=== PATIENT | male | born 1980 | race African-American/Black ===

== ENCOUNTER 2016-09-23 12:19 | Emergency (ER) | payer OTHER ==
[~2016-09-23] VITALS: Ht 177.8 cm; Wt 72.7 kg
[~2016-09-23 12:19] MED LIST: AMOXICILLIN 8751 TAB PO; CELEXA 20MG20 MG/TA1 PO; CEPHALEXIN500 M1 PO; HYDROXYZINE10 M1 PO; LEXAPRO20 MG PO; LORTAB 5/500 501 TAB PO; NO HOME MEDICATIONS; NORCO 325 MG-51 TAB PO; PEN-VEE K500 MG PO; PENICILLIN V500 MG PO; PERCOCET 325 MG1 TA2 PO; PHENERGAN 25 TA25 MG PO; PHENERGAN25 MG RC; SEROQUEL 200MG200 MG PO; ULTRAM 50MG TAB50 MG PO; ULTRAM50 MG PO; WELLBUTRIN SR150 M1 PO; ZOFRAN 4MG T4 MG/TAB PO
[2016-09-23 12:48] VITALS: TEMP 97.8
[2016-09-23 14:34] LABS: BASO % 0.5 % (0.0-2.0); EOS # 0.1 (0.0-0.7); EOS % 0.9 % (0-4.0); GRAN # 4.2 (1.4-6.5); HEMATOCRIT 45.5 % (42.0-52.0); HEMOGLOBIN 16.6 g/dl (13.5-18.0); LYMPH # 2.8 (1.2-3.4); LYMPH % 36.7 % (20.0-51.0); MEAN CELL VOLUME 86 fl (80.0-100.0); MEAN CORPUSCULAR HEMOGLOBIN 32 pg (27.0-31.0); MEAN CORPUSCULAR HGB CONC 37 g/dl (33.0-37.0); MEAN PLATELET VOLUME 9.4 fl (7.4-10.4); MONO # 0.5 (0.1-0.6); MONO % 6.8 % (1.7-9.3); PLATELET COUNT 273 K/mm3 (130-400); RED BLOOD COUNT 5.27 M/mm3 (4.20-5.60); REDCELL DISTRIBUTION WIDTH-CV 11.6 % (11.5-14.5); WHITE BLOOD COUNT 7.6 K/mm3 (4.8-10.8)
[2016-09-23 14:45] LABS: ADJUSTED CALCIUM 9.5 mg/dL (8.4-10.2); ALANINE AMINOTRANSFERASE 114 U/L (21-72); ALBUMIN 4.8 gm/dL (3.5-5.0); ALKALINE PHOSPHATASE 81 U/L (50-136); ANION GAP 15 mmol/L (7-16); BILIRUBIN,TOTAL 0.9 mg/dL (0.0-1.0); BLOOD UREA NITROGEN 11 mg/dL (9-20); CALCIUM 10.1 mg/dL (8.4-10.2); CARBON DIOXIDE 23 mmol/L (22-30); CHLORIDE 100 mmol/L (98-107); CREATININE, serum 0.75 mg/dL (0.66-1.25); GLUCOSE 77 mg/dL (74-106); SODIUM 138 mmol/L (137-145); TOTAL PROTEIN 9.4 gm/dL (6.4-8.2)
[2016-09-23 15:53] LABS: AMPHETAMINE URINE POSITIVE; BARBITURATES URINE NEGATIVE; BENZODIAZEPINES URINE NEGATIVE; BUPRENORPHINE URINE NEGATIVE; METHADONE URINE NEGATIVE; OPIATES URINE NEGATIVE; OXYCODONE URINE NEGATIVE; PHENCYCLIDINE URINE NEGATIVE; PROPOXYPHENE URINE NEGATIVE; THC CANNABINOIDS URINE POSITIVE
[2016-09-24 07:50] VITALS: BP 97/63
[2016-09-24 15:50] VITALS: PULSE 80
== END 2016-09-24 15:50 ==
LOC: COL.ER 12:19
PROVIDERS: Family Medicine
DX: F32.9 Major depressive disorder, single episode, unspecified (principal); R45.851 Suicidal ideations

== ENCOUNTER 2016-10-02 17:35 | Observation (INO) | payer OTHER ==
[~2016-10-02] VITALS: Ht 177.8 cm; Wt 70.5 kg
[2016-10-02 18:25] LABS: PH 6 (5-8); SQUAMOUS EPITHELIAL None Seen /hpf; URINE APPEARANCE Clear; URINE BACTERIA None Seen /hpf; URINE BILIRUBIN Negative (NEGATIVE); URINE BLOOD Negative (NEGATIVE); URINE COLOR Yellow; URINE GLUCOSE Negative (NEGATIVE); URINE KETONE 1+ (NEGATIVE); URINE RBC 0-2 /hpf; URINE UROBILINOGEN Negative (NEGATIVE); URINE WBC 0-2 /hpf
[2016-10-02 18:33] LABS: AMPHETAMINE URINE POSITIVE; BARBITURATES URINE NEGATIVE; BENZODIAZEPINES URINE NEGATIVE; BUPRENORPHINE URINE NEGATIVE; METHADONE URINE NEGATIVE; OPIATES URINE NEGATIVE; OXYCODONE URINE NEGATIVE; PHENCYCLIDINE URINE NEGATIVE; PROPOXYPHENE URINE NEGATIVE; THC CANNABINOIDS URINE NEGATIVE
[2016-10-02 18:46] LABS: ADJUSTED CALCIUM 9.2 mg/dL (8.4-10.2); ALANINE AMINOTRANSFERASE 150 U/L (21-72); ALBUMIN 4.8 gm/dL (3.5-5.0); ALKALINE PHOSPHATASE 92 U/L (50-136); ANION GAP 15 mmol/L (7-16); BLOOD UREA NITROGEN 14 mg/dL (9-20); CALCIUM 9.8 mg/dL (8.4-10.2); CARBON DIOXIDE 23 mmol/L (22-30); CHLORIDE 98 mmol/L (98-107); CREATININE, serum 0.71 mg/dL (0.66-1.25); GLUCOSE 70 mg/dL (74-106); LIPASE 67 U/L (23-300); POTASSIUM 4.3 mmol/L (3.4-5.0); SODIUM 135 mmol/L (137-145); TOTAL PROTEIN 9.6 gm/dL (6.4-8.2)
[2016-10-02 18:47] LABS: ACETAMINOPHEN < 10 ug/mL (10-30); SALICYLATE < 1.0 mg/dL
[2016-10-02 19:06] LABS: BASO # 0.1 (0.0-0.2); BASO % 0.6 % (0.0-2.0); EOS % 0.4 % (0-4.0); GRAN # 5.8 (1.4-6.5); GRAN % 56.8 % (42.2-75.2); HEMATOCRIT 43.5 % (42.0-52.0); HEMOGLOBIN 15.4 g/dl (13.5-18.0); LYMPH # 3.7 (1.2-3.4); LYMPH % 36.2 % (20.0-51.0); MEAN CELL VOLUME 88 fl (80.0-100.0); MEAN CORPUSCULAR HEMOGLOBIN 31 pg (27.0-31.0); MEAN CORPUSCULAR HGB CONC 35 g/dl (33.0-37.0); MEAN PLATELET VOLUME 9.2 fl (7.4-10.4); MONO # 0.6 (0.1-0.6); MONO % 5.5 % (1.7-9.3); PLATELET COUNT 297 K/mm3 (130-400); RED BLOOD COUNT 4.97 M/mm3 (4.20-5.60); REDCELL DISTRIBUTION WIDTH-CV 11.9 % (11.5-14.5); WHITE BLOOD COUNT 10.1 K/mm3 (4.8-10.8)
[2016-10-02 19:20] LABS: INR 1.1 (0.8-3.0); PROTHROMBIN TIME 12.2 SECONDS (9.7-12.8)
[2016-10-03] VITALS (509 sets, daily range): BP systolic 105–128; BP diastolic 75–88; PULSE 70–77; TEMP 97–98.2; O2SAT 92–100
[2016-10-03 13:46] LABS: ADJUSTED CALCIUM 9.3 mg/dL (8.4-10.2); BILIRUBIN,TOTAL 0.7 mg/dL (0.0-1.0); CALCIUM 9.3 mg/dL (8.4-10.2); CREATININE, serum 0.85 mg/dL (0.66-1.25); POTASSIUM 3.9 mmol/L (3.4-5.0)
[2016-10-04 00:13] VITALS: BP 112/72; PULSE 82; TEMP 97
[2016-10-04 04:39] VITALS: BP 107/57; PULSE 62; TEMP 97
[2016-10-04 07:41] VITALS: BP 107/57; PULSE 69; TEMP 98.1
[2016-10-04 11:26] VITALS: PULSE 65; TEMP 98.2
[2016-10-04 15:44] VITALS: PULSE 69; TEMP 98.1
[2016-10-04 20:00] VITALS: PULSE 77; TEMP 97.7
[2016-10-05] VITALS: PULSE 62
[2016-10-05 04:00] VITALS: BP 113/81; PULSE 67; TEMP 97.7
[2016-10-05 08:00] VITALS: BP 132/73; PULSE 73
[2016-10-05 11:52] VITALS: PULSE 70
[2016-10-05 16:00] VITALS: PULSE 67
[2016-10-05 20:00] VITALS: BP 130/91; PULSE 86; TEMP 99.2
[2016-10-06] VITALS (86 sets, daily range): BP systolic 109–133; BP diastolic 71–92; PULSE 56–86; TEMP 97–98.5; O2SAT 96–100
[2016-10-07] VITALS (52 sets, daily range): BP systolic 112–140; BP diastolic 73–88; PULSE 63–79; TEMP 97.4–98.5; O2SAT 96–100
== END 2016-10-07 09:40 ==
LOC: COL.ER 17:35 → ICU 23:40 → COL.ER 23:40 → ICU 23:40
PROVIDERS: Emergency Medicine; Psychiatry & Neurology Psychiatry
DX: R45.851 Suicidal ideations (principal); R44.0 Auditory hallucinations; F43.10 Post-traumatic stress disorder, unspecified; F41.9 Anxiety disorder, unspecified; F15.20 Other stimulant dependence, uncomplicated; F15.259 Other stimulant dependence with stimulant-induced psychotic disorder, unspecified
CPT/HCPCS: 90791-AI; G0378; J1630

== ENCOUNTER 2016-10-07 11:00 | Observation (INO) | payer OTHER ==
[2016-10-07] VITALS (12 sets, daily range): BP systolic 133–144; BP diastolic 83–98; PULSE 79–107; TEMP 96.7–98; O2SAT 95–98
[~2016-10-07] VITALS: Ht 177.8 cm; Wt 68.2 kg
[2016-10-08 00:31] VITALS: BP 113/71; PULSE 84; TEMP 97
[2016-10-08 04:07] VITALS: BP 117/60; PULSE 85; TEMP 97
[2016-10-08 05:58] LABS: ADJUSTED CALCIUM 9.4 mg/dL (8.4-10.2); ALBUMIN 3.8 gm/dL (3.5-5.0); BILIRUBIN,TOTAL 0.4 mg/dL (0.0-1.0); CALCIUM 9.2 mg/dL (8.4-10.2); CREATININE, serum 0.67 mg/dL (0.66-1.25); POTASSIUM 3.8 mmol/L (3.4-5.0); TOTAL PROTEIN 7.6 gm/dL (6.4-8.2)
[2016-10-08 07:34] VITALS: BP 131/95; PULSE 87; TEMP 97
[2016-10-08 12:15] VITALS: PULSE 87
== END 2016-10-08 16:15 ==
LOC: ICU 11:00
PROVIDERS: Psychiatry & Neurology Psychiatry
DX: F23 Brief psychotic disorder (principal); F15.90 Other stimulant use, unspecified, uncomplicated; F12.90 Cannabis use, unspecified, uncomplicated
CPT/HCPCS: G0378; G0379

== ENCOUNTER 2016-11-05 02:00 | Emergency (ER) | payer OTHER ==
[~2016-11-05] VITALS: Ht 177.8 cm; Wt 72.7 kg
[2016-11-05 02:05] VITALS: TEMP 98.1
[2016-11-05 03:43] LABS: BASO # 0.1 (0.0-0.2); BASO % 0.6 % (0.0-2.0); EOS # 0.1 (0.0-0.7); EOS % 0.4 % (0-4.0); GRAN # 8.5 (1.4-6.5); GRAN % 63.9 % (42.2-75.2); HEMATOCRIT 45.6 % (42.0-52.0); HEMOGLOBIN 16.3 g/dl (13.5-18.0); LYMPH # 4.1 (1.2-3.4); LYMPH % 30.8 % (20.0-51.0); MEAN CELL VOLUME 86 fl (80.0-100.0); MEAN CORPUSCULAR HEMOGLOBIN 31 pg (27.0-31.0); MEAN CORPUSCULAR HGB CONC 36 g/dl (33.0-37.0); MEAN PLATELET VOLUME 8.9 fl (7.4-10.4); MONO # 0.5 (0.1-0.6); MONO % 4.1 % (1.7-9.3); PLATELET COUNT 293 K/mm3 (130-400); RED BLOOD COUNT 5.28 M/mm3 (4.20-5.60); REDCELL DISTRIBUTION WIDTH-CV 12.2 % (11.5-14.5); WHITE BLOOD COUNT 13.3 K/mm3 (4.8-10.8)
[2016-11-05 03:47] LABS: PH 6 (5-8); SQUAMOUS EPITHELIAL 0-2 /hpf; URINE APPEARANCE Clear; URINE BACTERIA None Seen /hpf; URINE BILIRUBIN Negative (NEGATIVE); URINE BLOOD Negative (NEGATIVE); URINE COLOR Yellow; URINE GLUCOSE Negative (NEGATIVE); URINE KETONE Negative (NEGATIVE); URINE RBC None Seen /hpf; URINE UROBILINOGEN Negative (NEGATIVE); URINE WBC None Seen /hpf
[2016-11-05 03:56] LABS: AMPHETAMINE URINE NEGATIVE; BARBITURATES URINE NEGATIVE; BENZODIAZEPINES URINE NEGATIVE; BUPRENORPHINE URINE NEGATIVE; METHADONE URINE NEGATIVE; OPIATES URINE NEGATIVE; OXYCODONE URINE NEGATIVE; PHENCYCLIDINE URINE NEGATIVE; PROPOXYPHENE URINE NEGATIVE; THC CANNABINOIDS URINE POSITIVE
[2016-11-05 04:06] LABS: ADJUSTED CALCIUM 9.6 mg/dL (8.4-10.2); ALANINE AMINOTRANSFERASE 231 U/L (21-72); ALBUMIN 4.9 gm/dL (3.5-5.0); ALKALINE PHOSPHATASE 85 U/L (50-136); ANION GAP 20 mmol/L (7-16); BILIRUBIN,TOTAL 0.7 mg/dL (0.0-1.0); BLOOD UREA NITROGEN 10 mg/dL (9-20); CALCIUM 10.3 mg/dL (8.4-10.2); CARBON DIOXIDE 21 mmol/L (22-30); CHLORIDE 102 mmol/L (98-107); CREATININE, serum 0.79 mg/dL (0.66-1.25); GLUCOSE 99 mg/dL (74-106); POTASSIUM 4.1 mmol/L (3.4-5.0); SODIUM 143 mmol/L (137-145); TOTAL PROTEIN 9.4 gm/dL (6.4-8.2)
[2016-11-05 04:26] LABS: ACETAMINOPHEN < 10 ug/mL (10-30); SALICYLATE < 1.0 mg/dL
[2016-11-05 12:02] VITALS: BP 117/76; PULSE 76
== END 2016-11-05 12:44 ==
LOC: COL.ER 02:00
PROVIDERS: Emergency Medicine
DX: F33.3 Major depressive disorder, recurrent, severe with psychotic symptoms (principal); R45.851 Suicidal ideations; S51.812A Laceration without foreign body of left forearm, initial encounter; X78.9XXA Intentional self-harm by unspecified sharp object, initial encounter; Z23 Encounter for immunization
CPT/HCPCS: J2765; J7030

== ENCOUNTER 2017-08-08 14:53 | Emergency (ER) | payer OTHER ==
[~2017-08-08] VITALS: Ht 177.8 cm; Wt 70.0 kg
[2017-08-08 15:12] VITALS: BP 164/83; PULSE 116; TEMP 97.5
[2017-08-08] MEDS ORDERED: INVEGA SUSTENNA39 MG IM (15:14)
[2017-08-08] MEDS ORDERED: LEXAPRO20 MG PO (15:15)
[2017-08-08] MEDS ORDERED: DESYREL DIVIDO150 M1 PO (15:16)
[2017-08-08 16:00] LABS: BASO % 0.4 % (0.0-2.0); EOS # 0.2 (0.0-0.7); EOS % 2.6 % (0-4.0); GRAN % 55.1 % (42.2-75.2); HEMATOCRIT 41.4 % (42.0-52.0); HEMOGLOBIN 14.8 g/dl (13.5-18.0); LYMPH # 2.5 (1.2-3.4); LYMPH % 33.6 % (20.0-51.0); MEAN CELL VOLUME 90 fl (80.0-100.0); MEAN CORPUSCULAR HEMOGLOBIN 32 pg (27.0-31.0); MEAN CORPUSCULAR HGB CONC 36 g/dl (33.0-37.0); MONO # 0.6 (0.1-0.6); MONO % 8.2 % (1.7-9.3); PLATELET COUNT 293 K/mm3 (130-400); WHITE BLOOD COUNT 7.3 K/mm3 (4.8-10.8)
[2017-08-08 16:10] LABS: ADJUSTED CALCIUM 9.2 mg/dL (8.4-10.2); ALBUMIN 4.1 gm/dL (3.5-5.0); BILIRUBIN,TOTAL 0.4 mg/dL (0.0-1.0); C-REACTIVE PROTEIN 0.7 mg/dL (0.0-0.9); CALCIUM 9.3 mg/dL (8.4-10.2); CREATININE, serum 0.74 mg/dL (0.66-1.25); POTASSIUM 3.6 mmol/L (3.4-5.0); TOTAL PROTEIN 7.7 gm/dL (6.4-8.2)
[2017-08-08 16:27] LABS: ERYTHROCYTE SEDIMENTATION RATE 18 mm/hr (0-15)
== END 2017-08-08 16:04 | disposition left against medical advice (07) ==
LOC: COL.ER 14:53
PROVIDERS: Emergency Medicine
DX: I80.9 Phlebitis and thrombophlebitis of unspecified site (principal); L03.90 Cellulitis, unspecified; F15.10 Other stimulant abuse, uncomplicated; R21 Rash and other nonspecific skin eruption; F31.9 Bipolar disorder, unspecified; F25.9 Schizoaffective disorder, unspecified

== ENCOUNTER 2017-10-03 12:03 | Emergency (ER) | payer MEDICAID ==
[~2017-10-03] VITALS: Ht 177.8 cm; Wt 68.2 kg
[~2017-10-03 12:03] MED LIST changes: +DESYREL DIVIDO150 M1 PO; +INVEGA SUSTENNA39 MG IM
[2017-10-03 12:10] VITALS: BP 143/99; PULSE 146; TEMP 97.8
== END 2017-10-03 13:07 | disposition left against medical advice (07) ==
LOC: COL.ER 12:03
DX: R10.9 Unspecified abdominal pain (principal)

== ENCOUNTER 2017-11-03 14:19 | Emergency (ER) | payer MEDICAID ==
[~2017-11-03] VITALS: Ht 177.8 cm; Wt 68.2 kg
[2017-11-03 14:21] VITALS: TEMP 98
[2017-11-03 15:44] LABS: ALBUMIN 4.7 gm/dL (3.5-5.0); BASO % 0.3 % (0.0-2.0); BILIRUBIN,TOTAL 0.5 mg/dL (0.0-1.0); C-REACTIVE PROTEIN 1.1 mg/dL (0.0-0.9); CALCIUM 9.8 mg/dL (8.4-10.2); CREATININE, serum 0.69 mg/dL (0.66-1.25); EOS % 0.3 % (0-4.0); GRAN % 64.8 % (42.2-75.2); HEMATOCRIT 44.2 % (42.0-52.0); HEMOGLOBIN 15.6 g/dl (13.5-18.0); LYMPH # 1.7 (1.2-3.4); LYMPH % 27.9 % (20.0-51.0); MEAN CELL VOLUME 88 fl (80.0-100.0); MEAN CORPUSCULAR HEMOGLOBIN 31 pg (27.0-31.0); MEAN CORPUSCULAR HGB CONC 35 g/dl (33.0-37.0); MEAN PLATELET VOLUME 10.1 fl (7.4-10.4); MONO # 0.4 (0.1-0.6); MONO % 6.4 % (1.7-9.3); PLATELET COUNT 251 K/mm3 (130-400); POTASSIUM 3.8 mmol/L (3.4-5.0); RED BLOOD COUNT 5.01 M/mm3 (4.20-5.60); REDCELL DISTRIBUTION WIDTH-CV 12.3 % (11.5-14.5); TOTAL PROTEIN 8.6 gm/dL (6.4-8.2)
[2017-11-03] MEDS ORDERED: ZOFRAN ODT4 MG PO (16:01)
[2017-11-03 16:23] VITALS: BP 133/82; PULSE 92
== END 2017-11-03 16:25 | disposition home or self-care (01) ==
LOC: COL.ER 14:19
PROVIDERS: Emergency Medicine
DX: R11.2 Nausea with vomiting, unspecified (principal); R19.7 Diarrhea, unspecified; B19.20 Unspecified viral hepatitis C without hepatic coma; F25.0 Schizoaffective disorder, bipolar type; F17.210 Nicotine dependence, cigarettes, uncomplicated
CPT/HCPCS: J2405; J2550; J7030

== ENCOUNTER 2018-04-10 19:25 | Emergency (ER) | payer MEDICAID ==
[~2018-04-10 19:25] MED LIST changes: +ZOFRAN ODT4 MG PO
== END 2018-04-10 19:33 | disposition left against medical advice (07) ==
LOC: COL.ER 19:25
DX: Z72.9 Problem related to lifestyle, unspecified (principal)

== ENCOUNTER 2018-05-07 09:48 | Emergency (ER) | payer SELFPAY ==
[~2018-05-07] VITALS: Ht 177.8 cm; Wt 68.2 kg
[2018-05-07 09:54] VITALS: BP 125/81; TEMP 98.9
[2018-05-07] MEDS ORDERED: CEPHALEXIN500 M1 PO (10:32)
[2018-05-07 11:11] VITALS: PULSE 81
== END 2018-05-07 11:03 | disposition home or self-care (01) ==
LOC: COL.ER 09:48
DX: S80.02XA Contusion of left knee, initial encounter (principal); F25.9 Schizoaffective disorder, unspecified; Z86.19 Personal history of other infectious and parasitic diseases; V19.9XXA Pedal cyclist (driver) (passenger) injured in unspecified traffic accident, initial encounter; Y92.410 Unspecified street and highway as the place of occurrence of the external cause

== ENCOUNTER 2018-06-25 15:55 | Emergency (ER) | payer SELFPAY ==
[~2018-06-25] VITALS: Ht 177.8 cm; Wt 68.2 kg
[2018-06-25 16:02] VITALS: BP 150/96; PULSE 83; TEMP 98.9
[2018-06-25] MEDS ORDERED: CELEXA10 MG PO (16:22)
== END 2018-06-25 16:27 | disposition home or self-care (01) ==
LOC: COL.ER 15:55
DX: F43.9 Reaction to severe stress, unspecified (principal); F20.9 Schizophrenia, unspecified; F31.9 Bipolar disorder, unspecified; F41.9 Anxiety disorder, unspecified; Z86.19 Personal history of other infectious and parasitic diseases

== ENCOUNTER 2018-07-13 20:25 | Emergency (ER) | payer SELFPAY ==
[~2018-07-13 20:25] MED LIST changes: +CELEXA10 MG PO
== END 2018-07-13 20:58 | disposition left against medical advice (07) ==
LOC: COL.ER 20:25
DX: Z72.9 Problem related to lifestyle, unspecified (principal)

== ENCOUNTER 2018-07-16 13:56 | Emergency (ER) | payer SELFPAY ==
[~2018-07-16] VITALS: Ht 177.8 cm; Wt 68.2 kg
[2018-07-16 14:02] VITALS: BP 152/87; TEMP 98.9
[2018-07-16] MEDS ORDERED: CELEXA 20MG20 MG/TAB PO (14:18)
[2018-07-16 14:34] VITALS: PULSE 88
== END 2018-07-16 14:35 | disposition home or self-care (01) ==
LOC: COL.ER 13:56
DX: F25.0 Schizoaffective disorder, bipolar type (principal); B19.20 Unspecified viral hepatitis C without hepatic coma; Z76.0 Encounter for issue of repeat prescription

== ENCOUNTER → 2018-11-29 | Outpatient (CLI) | payer SELFPAY ==
[~2018-11-29] MED LIST changes: +CELEXA 20MG20 MG/TAB PO
[2018-11-29 11:48] LABS: BASO % 0.4 % (0.0-2.0); EOS # 0.1 (0.0-0.7); EOS % 2.5 % (0-4.0); GRAN # 1.7 (1.4-6.5); GRAN % 36.4 % (42.2-75.2); HEMATOCRIT 42.6 % (42.0-52.0); HEMOGLOBIN 15.2 g/dl (13.5-18.0); LYMPH # 2.3 (1.2-3.4); LYMPH % 48.4 % (20.0-51.0); MEAN CELL VOLUME 90 fl (80.0-100.0); MEAN CORPUSCULAR HEMOGLOBIN 32 pg (27.0-31.0); MEAN CORPUSCULAR HGB CONC 36 g/dl (33.0-37.0); MEAN PLATELET VOLUME 10.9 fl (7.4-10.4); MONO # 0.6 (0.1-0.6); MONO % 12.3 % (1.7-9.3); PLATELET COUNT 256 K/mm3 (130-400); RED BLOOD COUNT 4.74 M/mm3 (4.20-5.60); REDCELL DISTRIBUTION WIDTH-CV 11.9 % (11.5-14.5)
[2018-11-29 12:00] LABS: BILIRUBIN,TOTAL 0.3 mg/dL (0.0-1.0); CALCIUM 9.1 mg/dL (8.4-10.2); CREATININE, serum 0.8 mg/dL (0.66-1.25); POTASSIUM 4.2 mmol/L (3.4-5.0); TOTAL PROTEIN 7.3 gm/dL (6.4-8.2)
[2018-11-29 12:29] LABS: TSH w REFLEX 1.96 uIU/mL (0.465-4.680)
[2018-11-30 02:56] LABS: HEPATITIS C VIRUS ANTIBODY Reactive (Negative)
[2018-12-01 09:44] LABS: HELICOBACTER IgG 0.89 OD Ratio (<0.8)
== END ==
LOC: ZLAB.FHCC 11:04
PROVIDERS: Internal Medicine
DX: G89.29 Other chronic pain (principal); R19.7 Diarrhea, unspecified; R10.9 Unspecified abdominal pain

== ENCOUNTER 2019-08-07 23:10 | Emergency (ER) | payer SELFPAY ==
[~2019-08-07] VITALS: Ht 177.8 cm; Wt 68.2 kg
[2019-08-07 23:16] VITALS: BP 132/63; TEMP 97.7
[2019-08-07] MEDS ORDERED: BENADRYL25 M2 PO (23:19)
[2019-08-08 00:18] VITALS: PULSE 75
== END 2019-08-08 00:18 | disposition home or self-care (01) ==
LOC: COL.ER 23:10
DX: R07.89 Other chest pain (principal); F17.290 Nicotine dependence, other tobacco product, uncomplicated

== ENCOUNTER 2019-09-23 18:03 | Emergency (ER) | payer SELFPAY ==
[~2019-09-23] VITALS: Ht 177.8 cm; Wt 65.9 kg
[~2019-09-23 18:03] MED LIST changes: +BENADRYL25 M2 PO
[2019-09-23 19:16] VITALS: BP 122/76; PULSE 82; TEMP 98.4
== END 2019-09-23 19:15 | disposition home or self-care (01) ==
LOC: COL.ER 18:03
DX: R11.10 Vomiting, unspecified (principal); R19.7 Diarrhea, unspecified; F32.9 Major depressive disorder, single episode, unspecified; F41.9 Anxiety disorder, unspecified; F25.0 Schizoaffective disorder, bipolar type; B19.20 Unspecified viral hepatitis C without hepatic coma; Z87.891 Personal history of nicotine dependence

== ENCOUNTER 2019-10-10 11:25 | Emergency (ER) | payer SELFPAY ==
[~2019-10-10] VITALS: Ht 177.8 cm; Wt 65.9 kg
[2019-10-10 11:34] VITALS: TEMP 97.7
[2019-10-10] MEDS ORDERED: ATARAX50 MG PO (12:10)
[2019-10-10 12:55] VITALS: BP 128/76; PULSE 81
== END 2019-10-10 12:57 | disposition home or self-care (01) ==
LOC: COL.ER 11:25
DX: F41.0 Panic disorder [episodic paroxysmal anxiety] (principal); M25.522 Pain in left elbow; F25.9 Schizoaffective disorder, unspecified; F32.9 Major depressive disorder, single episode, unspecified; F17.210 Nicotine dependence, cigarettes, uncomplicated; Z86.19 Personal history of other infectious and parasitic diseases

== ENCOUNTER 2021-05-05 16:57 | Emergency (ER) | payer SELFPAY ==
[~2021-05-05] VITALS: Ht 177.8 cm; Wt 68.2 kg
[~2021-05-05 16:57] MED LIST changes: +ATARAX50 MG PO
[2021-05-05 17:50] VITALS: BP 144/64; PULSE 77; TEMP 98.4
== END 2021-05-05 17:50 | disposition home or self-care (01) ==
LOC: COL.ER 16:57
DX: K59.00 Constipation, unspecified (principal); F41.9 Anxiety disorder, unspecified; Z79.899 Other long term (current) drug therapy

== ENCOUNTER 2021-06-24 11:31 | Emergency (ER) | payer SELFPAY ==
[~2021-06-24] VITALS: Ht 177.8 cm; Wt 56.8 kg
[2021-06-24 11:46] VITALS: TEMP 98.3
[2021-06-24 12:15] LABS: BASO % 0.6 % (0.0-2.0); EOS % 0.2 % (0-4.0); GRAN % 55.9 % (42.2-75.2); HEMATOCRIT 39.2 % (42.0-52.0); LYMPH # 1.9 K/mm3 (1.2-3.4); LYMPH % 35.9 % (20.0-51.0); MEAN CELL VOLUME 89 fl (80.0-100.0); MEAN CORPUSCULAR HEMOGLOBIN 32 pg (27.0-31.0); MEAN CORPUSCULAR HGB CONC 36 g/dl (33.0-37.0); MEAN PLATELET VOLUME 9.9 fl (7.4-10.4); MONO # 0.4 K/mm3 (0.1-0.6); MONO % 7.4 % (1.7-9.3); PLATELET COUNT 218 K/mm3 (130-400); RED BLOOD COUNT 4.42 M/mm3 (4.20-5.60)
[2021-06-24 12:37] LABS: COLLECTION METHOD CLEAN CATCH
[2021-06-24 12:41] LABS: ALBUMIN 4.1 gm/dL (3.5-5.0); BILIRUBIN,TOTAL 0.4 mg/dL (0.2-1.2); CALCIUM 9.7 mg/dL (8.4-10.2); CREATININE, serum 0.83 mg/dL (0.72-1.25); POTASSIUM 3.8 mmol/L (3.5-4.5)
[2021-06-24 12:46] LABS: PH 6 (5-8); SQUAMOUS EPITHELIAL None Seen /hpf; URINE APPEARANCE Clear; URINE BACTERIA None Seen /hpf; URINE BILIRUBIN Negative (NEGATIVE); URINE BLOOD Negative (NEGATIVE); URINE COLOR Yellow; URINE GLUCOSE Negative (NEGATIVE); URINE KETONE Trace (NEGATIVE); URINE LEUKOCYTE ESTERASE Negative (NEGATIVE); URINE NITRATE Negative (NEGATIVE); URINE PROTEIN(semi-quant) Negative (NEGATIVE); URINE RBC 0-2 /hpf; URINE UROBILINOGEN Negative (NEGATIVE)
[2021-06-24 14:45] VITALS: BP 125/82; PULSE 59
== END 2021-06-24 14:45 | disposition home or self-care (01) ==
LOC: COL.ER 11:31
PROVIDERS: Physician Assistant
DX: K59.00 Constipation, unspecified (principal); R10.11 Right upper quadrant pain; Z86.19 Personal history of other infectious and parasitic diseases; Z87.891 Personal history of nicotine dependence
CPT/HCPCS: J2405; J3010; J7030; Q9967